=== PATIENT | female | born 1980 | race Caucasian/White ===

== ENCOUNTER 2018-02-07 21:27 | Emergency (ER) | payer BC, OTHER ==
[2018-02-07 21:46] VITALS: BP 113/75
--- NOTE | 2018-02-07 21:58 | UC ---
Abdominal Pain Female HPI - HPI Summary HPI Summary: This is scribe William Harp documenting for attending Simon Tellez MD. This patient is a 37 year old F presenting to [facility] with a chief complaint of worsening abdominal pain and bloating since one week ago. The patient rates the pain 5/10 in severity. Symptoms aggravated by eating a large amount of food. Patient reports cramping, fatigue, difficulty focusing, gas, difficulty eating, and incontinence. Patient denies diarrhea, nausea, vomiting, or difficulty passing stool. Pt reports that the pain was left sided and is now centered. Pt has not been eating or drinking anything different than normal. Pt reports that the incontinence has been happening for several months. No PMHx of organ removal. FHX diverticulitis. RX Sertraline and Topiramate. I, Dr. Tellez, personally performed the services described in this documentation as scribed in my presence and it is both accurate and complete. - History of Current Complaint Chief Complaint: UCAbdominalPain Stated Complaint: FATIGUE,STOMACH DISCOMFORT Hx Obtained From: Patient Hx Last Menstrual Period: 01/19/18 Onset/Duration: Sudden Onset, Lasting Weeks - 1 Timing: Constant Severity Currently: Moderate Pain Intensity: 5 Pain Scale Used: 0-10 Numeric Character: Burning, Sharp Aggravating Factor(s): Food Allergies/Adverse Reactions: Allergies Allergy/AdvReac Type Severity Reaction Status Date / Time No Known Allergies Allergy Verified 02/07/18 21:46 Home Medications: Home Medications Sertraline HCl [Zoloft] 50 mg PO BID 02/07/18 [History Confirmed 02/07/18] Topiramate 50 mg PO BID 02/07/18 [History Confirmed 02/07/18] PMH/Surg Hx/FS Hx/Imm Hx GI/ History: Other - no PMHx /GI Other GI/ History: . Psychological History: Anxiety - Surgical History Surgical History: None Surgery Procedure, Year, and Place: denies - Family History Known Family History: Positive: Other - diverticulitis - Social History Alcohol Use: None Substance Use Type: None Smoking Status (MU): Never Smoked Tobacco Have You Smoked in the Last Year: No - Immunization History Most Recent Influenza Vaccination: fall 2013 Most Recent Tetanus Shot: 10/02/14 Most Recent Pneumonia Vaccination: none Review of Systems Constitutional: Fatigue Gastrointestinal: Abdominal Pain, Other - bloating, difficulty eating Genitourinary: Urgency, Other - incontinence Motor: Weakness Neurological: Negative Psychological: Negative All Other Systems Reviewed And Are Negative: Yes Physical Exam - Summary Physical Exam Summary: General: well-appearing, no pain distress Skin: warm, color reflects adequate perfusion, dry Head: normal Eyes: EOMI, KELLY ENT: normal Neck: supple, nontender Respiratory: CTA, breath sounds present Cardiovascular: RRR Abdomen: tenderness in the RLQ Bowel: positive bowel sounds Musculoskeletal: normal, strength/ROM intact Neurological: sensory/motor intact, A&O x3 Psychological: affect/mood appropriate Triage Information Reviewed: Yes Vital Signs: Initial Vital Signs Temp 99.0 F 02/07/18 21:41 Pulse 79 02/07/18 21:41 Resp 20 02/07/18 21:41 BP 113/75 02/07/18 21:41 Pulse Ox 99 02/07/18 21:41 Vital Signs Reviewed: Yes Abd Pain Female Course/Dx - Course Course Of Treatment: RECOMMENDED GOING DIRECTLY TO THE EMERGENCY DEPARTMENT FOR FURTHER EVALUATION OF HER ABDOMINAL PAIN. - Differential Dx/Diagnosis Provider Diagnoses: ABDOMINAL PAIN Discharge - Sign-Out/Discharge Documenting (check all that apply): Patient Departure - Discharge Plan Condition: Stable Disposition: HOME-RECOMMEND TO ED Patient Education Materials: Acute Abdominal Pain (ED) Referrals: [facility] REFERRAL [Outside] Additional Instructions: GO DIRECTLY TO THE EMERGENCY DEPARTMENT FOR FURTHER EVALUATION OF YOUR ABDOMINAL PAIN. - Billing Disposition and Condition Condition: STABLE Disposition: Home-Recommend to ED
== END 2018-02-07 22:24 | disposition home health service (06) ==
LOC: UCEAST 21:27
DX: R10.31 Right lower quadrant pain (principal); R14.0 Abdominal distension (gaseous); R53.83 Other fatigue; R32 Unspecified urinary incontinence; F41.9 Anxiety disorder, unspecified; Z83.79 Family history of other diseases of the digestive system
CPT/HCPCS: 81003; 99212; G0463

== ENCOUNTER 2018-02-07 22:55 | Emergency (ER) | payer OTHER ==
--- NOTE | 2018-02-07 23:57 | ED ---
Abdominal Pain/Female - HPI Summary HPI Summary: Patient sent from [facility] for further evaluation of progressive abdominal pain and bloating with eating 1 week. Pain initially started out as a ache, has become a cramping, was intermittent and is now constant, and pain is more intense. Pain improves with position, worsens with eating. Denies foreign travel, camping, fever, cough, sore throat, CP, SOB, N/V/D, change in urine, vaginal symptoms, change in bowel movement. Medical history is anxiety. Abdominal/pelvic surgical history is none. LMP January 19. Nexplanon implant for control - History of Current Complaint Chief Complaint: EDAbdPain Stated Complaint: ABD PAIN Time Seen by Provider: 02/07/18 23:34 Hx Obtained From: Patient Hx Last Menstrual Period: 01/19/18 Onset/Duration: Gradual Onset Timing: Constant Severity Currently: Mild Pain Intensity: 4 Pain Scale Used: 0-10 Numeric Location: Discrete At: RLQ, Discrete At: LLQ Radiates: No Character: Cramping Aggravating Factor(s): Food Alleviating Factor(s): Position Associated Signs and Symptoms: Positive: Negative Allergies/Adverse Reactions: Allergies Allergy/AdvReac Type Severity Reaction Status Date / Time No Known Allergies Allergy Verified 02/07/18 22:58 PMH/Surg Hx/FS Hx/Imm Hx Endocrine/Hematology History: Denies: Hx Anticoagulant Therapy, Hx Diabetes, Hx Thyroid Disease Cardiovascular History: Denies: Hx Hypertension Respiratory History: Denies: Hx Asthma, Hx Chronic Obstructive Pulmonary Disease (COPD) GI History: Denies: Hx Ulcer History: Denies: Hx Dialysis Neurological History: Denies: Hx CVA Psychiatric History: Denies: Hx Anxiety, Hx Depression - Surgical History Surgery Procedure, Year, and Place: denies Infectious Disease History: No Infectious Disease History: Denies: Hx Hepatitis, Hx Human Immunodeficiency Virus (HIV), Traveled Outside the [place] in Last 30 Days - Family History Known Family History: Positive: Other - diverticulitis - Social History Alcohol Use: None Substance Use Type: Reports: None Smoking Status (MU): Never Smoked Tobacco Have You Smoked in the Last Year: No Review of Systems Constitutional: Negative Eyes: Negative ENT: Negative Cardiovascular: Negative Respiratory: Negative Positive: Abdominal Pain Genitourinary: Negative Musculoskeletal: Negative Skin: Negative Neurological: Negative Psychological: Normal All Other Systems Reviewed And Are Negative: Yes Physical Exam - Summary Physical Exam Summary: Most tender in right lower quadrant and left lower quadrant. Triage Information Reviewed: Yes Vital Signs On Initial Exam: Initial Vitals Temp Pulse Resp BP Pulse Ox 98.4 F 80 16 133/84 100 02/07/18 22:56 02/07/18 22:56 02/07/18 22:56 02/07/18 22:56 02/07/18 22:56 Vital Signs Reviewed: Yes Appearance: Positive: Well-Appearing Skin: Positive: Warm Head/Face: Positive: Normal Head/Face Inspection Eyes: Positive: Normal Neck: Positive: Supple Respiratory/Lung Sounds: Positive: Clear to Auscultation Cardiovascular: Positive: Normal Abdomen Description: Positive: McBurney's Point Tenderness. Negative: Distended , Guarding, Peritoneal Signs, Pulsatile Mass Musculoskeletal: Positive: Normal Neurological: Positive: Normal Psychiatric: Positive: Normal AVPU Assessment: Alert - Teresa Coma Scale Best Eye Response: 4 - Spontaneous Best Motor Response: 6 - Obeys Commands Best Verbal Response: 5 - Oriented Coma Scale Total: 15 Diagnostics - Vital Signs Vital Signs Temp Pulse Resp BP Pulse Ox 02/07/18 22:56 98.4 F 80 16 133/84 100 - Laboratory Result Diagrams: 02/07/18 23:52 02/07/18 23:52 Lab Statement: Any lab studies that have been ordered have been reviewed, and results considered in the medical decision making process. Abdominal Pain Fem Course/Dx - Course Course Of Treatment: Patient sent from [facility] for further evaluation of progressive abdominal pain and bloating with eating 1 week. Pain initially started out as a ache, has become a cramping, was intermittent and is now constant, and pain is more intense. Pain improves with position, worsens with eating. Denies foreign travel, camping, fever, cough, sore throat, CP, SOB, N/V /D, change in urine, vaginal symptoms, change in bowel movement. Medical history is anxiety. Abdominal/pelvic surgical history is none. LMP January 19. Nexplanon implant for control. Physical exam:Most tender in right lower quadrant and left lower quadrant. Vital signs normal. CT negative. Trial of Bentyl until patient can see GI. - Diagnoses Provider Diagnoses: Abdominal pain Discharge - Sign-Out/Discharge Documenting (check all that apply): Patient Departure - Discharge Plan Condition: Stable Disposition: HOME Patient Education Materials: Gas and Bloating (ED), Acute Abdominal Pain (ED) Referrals: No Primary Care Phys,NOPCP [Primary Care Provider] - Landon Corbin MD [Medical Doctor] - Additional Instructions: Follow-up with GI specialist Dr. Corbin. Return to the ED for any new or worsening symptoms - Billing Disposition and Condition Condition: STABLE Disposition: Home
[2018-02-08 00:02] LABS: ABS Basophils 0.1 10^3/ul (0-0.2); ABS Eosinophils 0.3 10^3/ul (0-0.6); ABS Lymphocytes 2.4 10^3/ul (1.0-4.8); ABS Monocytes 0.8 10^3/ul (0-0.8); ABS Neutrophils 4.3 10^3/ul (1.5-7.7); ABS Nucleated RBC 0 10^3/ul; Eosinophil % 3.5 % (0-6); Hematocrit 38 % (35-47); Hemoglobin 13.2 g/dl (12.0-16.0); Lymphocyte % 30.6 % (25-47); Mean Corpuscular HGB Conc 34 g/dl (31-36); Mean Corpuscular Hemoglobin 31 pg (27-31); Mean Corpuscular Volume 90 fL (80-97); Mean Platelet Volume 7.2 um3 (7.4-10.4); Nucleated Red Blood Cells % 0; Platelet Count 249 10^3/ul (150-450); Red Blood Count 4.24 10^6/ul (4.00-5.40); Red Cell Distribution Width 13 % (10.5-15); White Blood Count 7.8 10^3/ul (3.5-10.8)
[2018-02-08 00:21] LABS: EGFR Non-African American 64.7 (>60)
[2018-02-08] MEDS ORDERED: Iohexol 300* (CONTRAST) 10 ML SDV IV ONE (00:40)
[2018-02-08 00:49] LABS: Urine Appearance Clear; Urine Blood Negative (Negative); Urine Color Straw; Urine Ketones Negative (Negative); Urine Protein Negative (Negative); Urine Specific Gravity 1.005 (1.010-1.030); Urine Urobilinogen Negative (Negative)
[2018-02-08] MEDS ORDERED: Ketorolac INJ* 30 MG/ML 1 ML VIAL IV ONE (01:48)
[2018-02-08] MEDS ORDERED: Omeprazole CAP* 20 MG PO ONE (01:53)
[2018-02-08] MEDS ORDERED: Dicyclomine CAP* 10 MG PO ONE (01:53)
[2018-02-08 02:41] VITALS: BP 99/73
--- NOTE | 2018-02-08 08:12 | RAD ---
CLINICAL HISTORY: 1 week of progressive abdominal pain COMPARISON: None TECHNIQUE: Contrast enhanced CT examination of the abdomen and pelvis from the lung bases through the initial tuberosities. The patient received 72 mL Omnipaque 300 intravenously prior to imaging.The patient did not receive oral contrast. FINDINGS: VISUALIZED LUNG BASES: The visualized lung bases are grossly clear. There is no pleural effusion. ABDOMEN AND PELVIS: The liver, spleen, pancreas and adrenal glands are grossly normal in appearance. The gallbladder is normal. The kidneys are normal in appearance without focal mass, calcification or signs of hydronephrosis. Evaluation of the gastrointestinal tract is limited in the absence of oral contrast. There is a large amount of stool filling the cecum, transverse colon and descending colon as far as the rectosigmoid colon. Neither the small or large bowel isn't pathologically distended.. The appendix is probably identified in the right lower quadrant with gas in the lumen (coronal image 27) without surrounding inflammatory change. There is no gross retroperitoneal or mesenteric lymphadenopathy. The pelvic viscera is normal in appearance. The abdominal aorta and iliac arteries are normal in course and diameter. There are no sinister bone lesions. IMPRESSION: There is a large amount of stool filling most of the not pathologically distended colon. Please correlate to a clinical history of constipation.
== END 2018-02-08 02:39 | disposition home or self-care (01) ==
LOC: ED 22:55
DX: R10.31 Right lower quadrant pain (principal); R10.32 Left lower quadrant pain; Z83.79 Family history of other diseases of the digestive system
CPT/HCPCS: 36415; 74177; 80053; 81003; 83690; 84702; 85025; 86140; 99283; A9270-GY; Q9967